=== PATIENT | male | born 1985 | race Caucasian/White ===

== ENCOUNTER 2016-11-15 17:44 | Emergency (ER) | payer OTHER ==
[2016-11-15 17:52] VITALS: BP 137/88
[2016-11-15] MEDS ORDERED: Proparacaine 0.5% Ophth Soln 15 ML Bottle EYELF PRN (18:02)
[2016-11-15] MEDS ORDERED: Fluorescein 1 MG Ophth Strip EYERT ONE (18:02)
[2016-11-15] MEDS ORDERED: Diclofenac Sodium 0.1% Ophth Soln 5 ML Bottle EYERT SCH (20:00)
[2016-11-15] MEDS ORDERED: Gentamicin 0.3% Ophth Soln 5 ML Bottle EYERT SCH (20:00)
--- NOTE | 2016-11-16 07:35 | ER ---
Date of Service: 11/15/2016 SUBJECTIVE: Paul presents to the emergency room with complaints of pain to his right eye. The patient states that he woke up in the morning and accidentally stuck his thumb in his right eye approximately 24 hours ago. He is continuing to have erythema, discomfort, and watering to the eye. He states that he has not been doing any grinding or working with metal and states that he thinks that the only source of injury was secondary to putting his thumb in his eye. PAST MEDICAL HISTORY: 1. Depression. 2. Anxiety. MEDICATIONS: 1. Bupropion XL 150 mg daily. 2. Sertraline 100 mg p.o. daily. ALLERGIES: NKDA. REVIEW OF SYSTEMS: Denies any acute vision loss or change and denies any injury other than what was isolated to his right eye. PHYSICAL EXAMINATION: General: A 31-year-old male patient, who is in no acute distress. Vital Signs: Blood pressure is 137/88, pulse rate 88, temperature is 36.9, respiratory rate 18, and O2 saturations 94%. Skin: Warm, pink, and dry. HEENT: The patient's visual acuity is 20/40 in both eyes pre and post examination. A fluorescein examination does reveal a corneal abrasion at approximately the 9 o'clock position approximately 2 mm from the lateral edge of the iris. There does not appear to be any retained material to the surface of the eye or to the underside of the eyelid. ASSESSMENT: Corneal abrasion to right eye. PLAN: The patient will be discharged. Gentamicin drops 1 drop to the right eye 4 times daily for 7 days and the Voltaren drops 1 drop 3 times daily for 5 days for discomfort. I did advise him to follow up at [facility] for a slit- lamp examination tomorrow. He is to return to the emergency room if he develops any acute vision loss or change. All questions were answered. MWK: 11/15/2016 18:24:17 MODL: 11/16/2016 00:50:53 /[id number]
== END 2016-11-15 18:25 | disposition home or self-care (01) ==
LOC: VM.ED 17:44
DX: S05.01XA Injury of conjunctiva and corneal abrasion without foreign body, right eye, initial encounter (principal); F32.9 Major depressive disorder, single episode, unspecified; F41.9 Anxiety disorder, unspecified; Z79.899 Other long term (current) drug therapy
CPT/HCPCS: 99282; A9270